=== PATIENT | male | born 1995 | race Hispanic/Latino ===

== ENCOUNTER 2021-03-31 09:15 | Emergency (ER) | payer SELFPAY ==
[~2021-03-31] VITALS: Ht 170.2 cm; Wt 75.0 kg
[2021-03-31] MEDS ORDERED: AMOX/K CLAV875 M1 PO (10:23)
[2021-03-31] MEDS ORDERED: FLOXIN OTIC0.3 % AD (10:23)
[2021-03-31] MEDS ORDERED: NO HOME MEDS (10:51)
[2021-03-31 11:21] VITALS: BP 108/67
== END 2021-03-31 11:21 | disposition home or self-care (01) | DRG 156 ==
LOC: ED 09:15
DX: S09.21XA Traumatic rupture of right ear drum, initial encounter (principal); F17.210 Nicotine dependence, cigarettes, uncomplicated; X58.XXXA Exposure to other specified factors, initial encounter